=== PATIENT | female | born 1995 | race Caucasian/White ===

== ENCOUNTER → 2021-08-31 | Outpatient (CLI) | payer OTHER ==
[2021-08-31 18:10] LABS: BASO # 0.1 10^3/uL (0.0-0.2); BASO % 0.6 % (0.0-1.0); EOS # 0.1 10^3/uL (0.0-0.5); HEMATOCRIT 36.1 % (36.0-47.0); LYMPH % 22.6 % (24.0-44.0); MEAN CORPUSCULAR HGB CONC 33.2 g/dl (32.0-36.5); MEAN CORPUSCULAR VOLUME 84.3 fl (80.0-96.0); MONO # 0.6 10^3/uL (0.0-0.8); MONO % 6.9 % (2.0-8.0); NEUTROPHILS % 68.6 % (36.0-66.0); PLATELET COUNT, AUTOMATED 245 10^3/uL (150-450); RED BLOOD COUNT 4.28 10^6/uL (4.00-5.40); WHITE BLOOD COUNT 8.7 10^3/uL (4.0-10.0)
[2021-08-31 19:18] LABS: HEPATITIS C VIRUS ABY INDEX 0.1 INDEX (<0.8); HIV 1&2 SCREEN CENTAUR NEGATIVE (NEGATIVE)
[2021-08-31 21:10] LABS: GC DNA AMPLIFICATION NEGATIVE (NEGATIVE)
== END ==
LOC: M PLALAB 15:11
PROVIDERS: ATTEND Obstetrics & Gynecology
DX: O34.219 Maternal care for unspecified type scar from previous cesarean delivery (principal); Z36.89 Encounter for other specified antenatal screening

== ENCOUNTER → 2021-09-29 | Outpatient (CLI) | payer OTHER | LOC: M PLALAB 14:44 | PROVIDERS: ATTEND Obstetrics & Gynecology | DX: Z34.90 Encounter for supervision of normal pregnancy, unspecified, unspecified trimester (principal); Z3A.00 Weeks of gestation of pregnancy not specified ==

== ENCOUNTER → 2021-11-01 | Outpatient (CLI) | payer OTHER | LOC: M WHC 07:56 | PROVIDERS: ATTEND Advanced Practice Midwife | DX: O34.211 Maternal care for low transverse scar from previous cesarean delivery (principal); Z3A.20 20 weeks gestation of pregnancy ==

== ENCOUNTER → 2021-12-29 | Outpatient (CLI) | payer OTHER ==
[2021-12-29 18:05] LABS: HEMATOCRIT 34.9 % (36.0-47.0); HEMOGLOBIN 11.3 g/dl (12.0-15.5); MEAN CORPUSCULAR HEMOGLOBIN 28.6 pg (27.0-33.0); MEAN CORPUSCULAR HGB CONC 32.4 g/dl (32.0-36.5); MEAN CORPUSCULAR VOLUME 88.4 fl (80.0-96.0); PLATELET COUNT, AUTOMATED 208 10^3/uL (150-450); RED BLOOD COUNT 3.95 10^6/uL (4.00-5.40); WHITE BLOOD COUNT 10.8 10^3/uL (4.0-10.0)
== END ==
LOC: M PLALAB 13:52
PROVIDERS: ATTEND Advanced Practice Midwife
DX: O34.211 Maternal care for low transverse scar from previous cesarean delivery (principal)

== ENCOUNTER → 2022-02-28 | Outpatient (REF) | payer OTHER ==
[~2022-02-28] MED LIST: FAMO20TA PO; PRENMIS3 PO
== END ==
LOC: M SFHCWAGY 12:57
PROVIDERS: ATTEND Advanced Practice Midwife
DX: Z36.85 Encounter for antenatal screening for Streptococcus B (principal); O34.211 Maternal care for low transverse scar from previous cesarean delivery; Z3A.00 Weeks of gestation of pregnancy not specified

== ENCOUNTER 2022-03-14 07:30 | Inpatient (IN) | payer OTHER ==
[~2022-03-14] VITALS: Ht 160 cm; Wt 97.1 kg
[2022-03-14] MEDS ORDERED: LACTATED RINGER'S 1000 ML IV STA (18:52)
[2022-03-14] MEDS ORDERED: METHYLERGONOVINE MALEATE 0.2 MG/ML VIAL (J2210) IM PRN (18:55)
[2022-03-14] MEDS ORDERED: BICITRA 30ML SOLN UDC PO ONE (18:55)
[2022-03-14] MEDS ORDERED: CARBOPROST TROMETHAMINE 250 MCG/ML AMP IM PRN (18:55)
[2022-03-14] MEDS ORDERED: TRANEXAMIC ACID INJection 1,000 MG in NS 100 ML IV PRN (18:55)
[2022-03-14] MEDS ORDERED: OXYTOCIN DRIP 30 UNITS in IV 1 EA IV PRN (18:55)
[2022-03-14] MEDS ORDERED: ceFAZolin SOD 2 GM in IV 1 EA IV ONE (18:55)
[2022-03-14] MEDS ORDERED: AZITHROMYCIN INJ 500 MG, VIAL MATE ADAPTER 1 EACH in NS 250 ML IV ONE (18:55)
[2022-03-14] MEDS ORDERED: LR 1,000 ML IV SCH (18:55)
[2022-03-14 19:20] LABS: HEMATOCRIT 35.1 % (36.0-47.0); HEMOGLOBIN 11.4 g/dl (12.0-15.5); MEAN CORPUSCULAR HEMOGLOBIN 26.9 pg (27.0-33.0); MEAN CORPUSCULAR HGB CONC 32.5 g/dl (32.0-36.5); MEAN CORPUSCULAR VOLUME 82.8 fl (80.0-96.0); PLATELET COUNT, AUTOMATED 229 10^3/uL (150-450); RED BLOOD COUNT 4.24 10^6/uL (4.00-5.40); WHITE BLOOD COUNT 9.4 10^3/uL (4.0-10.0)
[2022-03-14] MEDS ORDERED: MORPHINE PRES-FREE INJ 10 MG/10 ML VIAL As Ordered ONE (20:48)
[2022-03-14] MEDS ORDERED: OXYTOCIN INJ 10 UNITS/ML VIAL (J2590) As Ordered ONE (20:48)
[2022-03-14] MEDS ORDERED: ONDANSETRON 4MG 2ML VIAL As Ordered ONE (20:48)
[2022-03-14] MEDS ORDERED: PHENYLephrine 500MCG 5ML (100MCG/ML) SYRINGE As Ordered ONE ×2 (20:51→21:19)
[2022-03-14] MEDS ORDERED: ePHEDrine SULFATE 25 MG/5 ML(5MG/ML) SYRINGE As Ordered ONE (21:01)
[2022-03-14] MEDS ORDERED: METOCLOPRAMIDE INJ 10MG/2ML VIAL (J2765 PER 1) As Ordered ONE (21:18)
[2022-03-14] MEDS ORDERED: KETOROLAC 60MG 2ML VIAL As Ordered ONE (21:26)
[2022-03-14 22:24] VITALS: BP 105/62
[2022-03-14] MEDS: ACETAMINOPHEN 500 MG TAB PO SCH (22:25)
[2022-03-14] MEDS ORDERED: SIMETHICONE 80MG CHEW TAB PO PRN (22:25)
[2022-03-14] MEDS ORDERED: oxyCODONE 5MG TAB PO PRN ×2 (22:25)
[2022-03-14] MEDS ORDERED: DOCUSATE SODIUM 100MG CAPSULE PO PRN (22:25)
[2022-03-14] MEDS ORDERED: OXYTOCIN DRIP 30 UNITS in IV 1 EA IV SCH (22:25)
[2022-03-14] MEDS ORDERED: RHOGAM 300 MCG (1500 IU) INJ (J2790) IM SCH (22:25)
[2022-03-14] MEDS ORDERED: IBUP-1022 PO (22:37)
[2022-03-14] MEDS ORDERED: ACET-683 PO (22:37)
[2022-03-14] MEDS ORDERED: COLA100C5 PO (22:37)
[2022-03-14] MEDS ORDERED: OXYC-517 PO (22:37)
[2022-03-14 22:40] VITALS: BP 126/73
[2022-03-14 22:46] VITALS: BP 133/64
[2022-03-14 22:50] VITALS: BP 116/59
[2022-03-14 22:55] VITALS: BP 123/59
[2022-03-14] MEDS ORDERED: OXYTOCIN 30 UNITS IN 0.9% NaCl 500ML IV BAG (J2590) As Ordered ONE (23:02)
[2022-03-14 23:04] VITALS: BP 120/74
[2022-03-15] VITALS (10 sets, daily range): BP systolic 88–118; BP diastolic 52–70
[2022-03-15] MEDS: KETOROLAC 30 MG/ML 1ML VIAL IV SCH ×3 (03:43→15:29)
[2022-03-15] MEDS: ACETAMINOPHEN 500 MG TAB PO SCH ×4 (03:44→22:29)
[2022-03-15] MEDS ORDERED: METOCLOPRAMIDE INJ 10MG/2ML VIAL (J2765 PER 1) IV PRN (03:55)
[2022-03-15] MEDS ORDERED: ONDANSETRON 4MG 2ML VIAL IV PRN (03:55)
[2022-03-15] MEDS ORDERED: LR 500 ML IV ONE (03:55)
[2022-03-15 07:18] LABS: MEAN CORPUSCULAR HGB CONC 32.1 g/dl (32.0-36.5); MEAN CORPUSCULAR VOLUME 84.1 fl (80.0-96.0); PLATELET COUNT, AUTOMATED 145 10^3/uL (150-450); RED BLOOD COUNT 3.45 10^6/uL (4.00-5.40); WHITE BLOOD COUNT 11.7 10^3/uL (4.0-10.0)
[2022-03-15 07:22] LABS: HEMOGLOBIN 9.3 g/dl (12.0-15.5)
[2022-03-15] MEDS: PRENATAL VITAMINS CHEWABLE TABLET PO SCH (10:09)
[2022-03-16] MEDS: IBUPROFEN 600MG TAB PO SCH ×3 (01:08→11:01)
[2022-03-16 02:00] VITALS: BP 99/54
[2022-03-16] MEDS: ACETAMINOPHEN 500 MG TAB PO SCH ×2 (05:19→10:25)
[2022-03-16 06:00] VITALS: BP 111/60
[2022-03-16] MEDS ORDERED: MEASLES,MUMPS,RUBELLA VACCINE INJ (MMR-II) (90707) SC.IMMUN ONE (09:00)
[2022-03-16 10:00] VITALS: BP 91/52
[2022-03-16] MEDS: PRENATAL VITAMINS CHEWABLE TABLET PO SCH (11:00)
== END 2022-03-16 14:10 | disposition home or self-care (01) | DRG 540 ==
LOC: M LDI 18:23 → M OBS 23:52
PROVIDERS: ADMIT Obstetrics & Gynecology; ATTEND Advanced Practice Midwife
PROC: 0UB70ZZ Excision of Bilateral Fallopian Tubes, Open Approach (ICD-10-PCS; 2022-03-14)
PROC: 10D00Z1 Extraction of Products of Conception, Low, Open Approach (ICD-10-PCS; principal; 2022-03-14 20:30)
DX: O34.211 Maternal care for low transverse scar from previous cesarean delivery (principal); Z30.2 Encounter for sterilization; Z37.0 Single live birth; Z3A.38 38 weeks gestation of pregnancy